=== PATIENT | female | born 1960 | race Caucasian/White ===

== ENCOUNTER 2019-03-26 16:38 | Emergency (ER) | payer OTHER ==
--- OUTSIDE RECORDS SUMMARY | 2019-03-26 16:43 | XMS REPORT | Continuity of Care Document ---
:1960 External Reference #:[id number] Author Name Eric Brown, Address [address] [place] [address] [place] [address] Care Team Providers Name Role Phone Sirena Cole M.D. Care Team Information Electronic Page Makeup System Operator Unavailable Sirena Cole M.D. Primary Care Physician Unavailable Payers Date Identification Numbers Payment Provider Subscriber Policy Number: [id number] Jarad Hearn PayID: [id number] [address] [place] [id number] Advance Directives Description No Information Available Problems Active Problems Provider Date Generalized abdominal pain Kasie Hendrix PA-C Onset: 02/15/2019 Hemorrhage of rectum and anus Kasie Hendrix PA-C Onset: 02/15/2019 Cough Kasie Hendrix PA-C Onset: 02/15/2019 Gastroesophageal reflux disease Kasie Hendrix PA-C Onset: 02/15/2019 Family History Description No Information Available Social History Type Date Description Comments Sex Unknown Tobacco Use Start: Unknown Patient has never smoked Smoking Status Reviewed: 02/15/19 Patient has never smoked Allergies, Adverse Reactions, Alerts Active Allergies Reaction Severity Comments Date Statins 02/15/2019 Medications Active Medications SIG Qnty Indications Ordering Date Provider Trazodone HCL 1 by mouth at 30tabs G47.00 Sirena Cole, 01/13/2019 50mg Tablets bedtime M.D. Meloxicam take one tab 45tabs M19.049 Sirena Cole, 01/13/2019 7.5mg Tablets twice daily as M.D. needed for pain, avoid other nsaids Diclofenac Sodium apply four 100units M19.049 Sirena Cole, 12/23/2018 1% Gel times a day as M.D. needed Tramadol HCL 1 by mouth 30tabs Kelsey Sirena, 11/18/2018 50mg Tablets every 6-8 hours M.D. as needed for pain [id number] Ethyl 1 capsules 120caps E78.5 Kelsey Sirena, 11/17/2018 Esters 1x/day M.D. 1gm Capsules Cyclobenzaprine HCL 1-2 tab once a 30tabs M62.830 Kelsey Sirena, 11/17/2018 5mg day as needed M.D. Tablets for muscle spasm Levothyroxine Sodium 1 by mouth 90tabs Kelsey Sirena, 50mcg every day M.D. Tablets Metformin HCL 1 by mouth once 90tabs Kelsey Sirena, 500mg Tablets a day M.D. Hydroxyzine HCL 1 tablet by 90tabs Kelsey Sirena, 10mg mouth daily prn M.D. Tablets D 5000 take 1 tab by Unknown 5000Unit Tablets mouth daily Citalopram Hydrobromide Daily Unknown 10mg Tablets History Medications Colyte-Flavor Packs As directed 4000ml K62.5 Kasie L. 02/15/2019 - ESTEFANIA Hendrix 02/18/2019 240gm Solution Rec Diazepam take one tablet 10tabs F40.243 Kelsey Sirena, 01/13/2019 - 5mg Tablets by mouth every M.D. 02/15/2019 8 hours as needed anxiety Amphetamine-Dextroamp 1 by mouth 30tabs R41.840 Kelsey Sirena, 01/13/2019 - hetamine every day M.D. 02/15/2019 10mg Tablets Biotin 1 by mouth Unknown - 5mg Tablets every day 02/15/2019 Immunizations Description No Information Available Vital Signs Date Vital Result Comment 02/15/2019 3:21pm Height 66 inches 5'6" Weight 156.00 lb BP Systolic 118 mmHg BP Diastolic 75 mmHg Heart Rate 68 /min BMI (Body Mass Index) 25.2 kg/m2 Results Test Date Facility Test Result H/L Range Note [place] test 02[place] [facility] [place]ULT 1, 2 finding Interface Order BELOW Laboratory test 02/23[place] [facility] [place] mg/dL High 70-100 3 finding Glucose Lab Results 11/17/2018 N2N/[facility] Import MTHFR C677T Negative Mutation MTHFR Interpretation See Comment 4 MTHFR Reviewed By See Comment 5 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 Mthac Interpretation See Comment 6 Mthac Reviewed By See Comment 7 Lab Results 11/11/2018 N2N/CCD Import TSH (Thyroid Stim 1.40 mcIU/mL 0.34-5.6 Horm) Vitamin B12 656 pg/mL 180-914 8 1 [id number] 2 SEE RESULT BELOW Name: COURT HEARN : [address]: Eric Brown DO Acct: [id number] Unit: [id number] AGE: 58 Location: [facility] Re02/23/19 SEX: F Status: DEP REF SPEC: [id number] ALEX: 02/23/19-[address] [facility] [address]: Eirc Brown DO REQ: [id number] RECD: 02/23/190475 STATUS: DANIEL BLAIR DR: Sirena Cole MD _ ORDERED: LEVEL 4 COMMENTS: [id number] FINAL DIAGNOSIS Colon, random, biopsy: -- Benign colonic mucosa with no significant pathologic abnormalities. -- No evidence of microscopic colitis. CLINICAL HISTORY Rectal bleeding PRE-OPERATIVE DIAGNOSIS Rule out microscopic colitis POST-OPERATIVE DIAGNOSIS Colonoscopy: to terminal ileum; good prep; normal; grade I internal hemorrhoid; biopsy to rule out microscopic colitis; bleeding from internal hemorrhoid GROSS DESCRIPTION The specimen is received in formalin labeled, Random Colon Biopsies, and consists of a 0.6 x 0.5 x 0.3 cm aggregate of abebe irregular soft tissue fragments which is submitted entirely in one cassette. Signed by and Reported on: Sandra Nolasco MD 02/24/19 1313 END OF REPORT DEPARTMENT OF PATHOLOGY, [address] [place] [address] Kevin Silva M.D. Director [facility] # [id number] SEE RESULT BELOW Name: NADIYACOURT : [address]: Eric Brown DO Acct: [id number] Unit: [id number] AGE: 58 Location: [facility] Re02/23/19 SEX: F Status: DEP REF SPEC: [id number] ALEX: 02/23/19-[address] [facility] [address]: Eric Brown DO REQ: [id number] RECD: 02/23/19 STATUS: DANIEL BLAIR DR: Sirena Cole MD _ ORDERED: LEVEL 4 COMMENTS: [id number] FINAL DIAGNOSIS Colon, random, biopsy: -- Benign colonic mucosa with no significant pathologic abnormalities. -- No evidence of microscopic colitis. CLINICAL HISTORY Rectal bleeding PRE-OPERATIVE DIAGNOSIS Rule out microscopic colitis POST-OPERATIVE DIAGNOSIS Colonoscopy: to terminal ileum; good prep; normal; grade I internal hemorrhoid; biopsy to rule out microscopic colitis; bleeding from internal hemorrhoid GROSS DESCRIPTION The specimen is received in formalin labeled, Random Colon Biopsies, and consists of a 0.6 x 0.5 x 0.3 cm aggregate of abebe irregular soft tissue fragments which is submitted entirely in one cassette. Signed by and Reported on: Sandra Nolasco MD 02/24/19 1313 END OF REPORT DEPARTMENT OF PATHOLOGY, [address], [place], [place] [address] Kevin Silva M.D. Director [facility] # [id number] 3 Gravity Meter Operator: [id number] This individual DOES NOT have the Methylenetetrahydrofolate reductase (MTHFR) C677T gene mutation. In the absence of the MTHFR C677T gene mutation, other causes of hyperhomocysteinemia should be considered (renal failure, zinc deficiency, leukemia, psoriasis, or antifolate drug therapy). If clinically indicated, suggest Coagulation Consultation 09130 (Thrombophilia Profile) to complete the evaluation for an inherited or acquired thrombosing disorder (i.e., thrombophilia). Consider genetic consultation and counseling of potentially affected family members regarding laboratory testing. ADDITIONAL INFORMATION This test is a direct mutation analysis using PCR amplification, signal generation and release by cleavage of sequence specific alleles ([employer], [employer], [place], [place]). This test has been modified from the merchandise processor's instructions. Its performance characteristics were determined by [facility] in a manner consistent with CLIA requirements. This test has not been cleared or approved by the U.S. Food and Drug Administration. 5 RESULT: Martin James M.D., Ph.D. 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 MTHAC S0247D carriers are not at increased risk for thrombosis in the absence of hyperhomocysteinemia. In the absence of alternative causes, heterozygous carriers of MTHAC W5860W are not at increased risk for hyperhomocysteinemia. Hyperhomocysteinemia is a relatively weak risk factor for both venous thromboembolism and arterial thrombosis. The MTHAC F2953L gene mutation test does not detect other causes of hyperhomocysteinemia due to acquired disorders (renal failure, zinc deficiency, leukemia, psoriasis, or antifolate drug therapy). If clinically indicated, suggest Coagulation Consultation 30062 (Thrombophila Profile) to complete the evaluation for an inherited or acquired thrombosing disorder (i.e., thrombophilia). Consider genetic consultation and counseling of potentially affected family members regarding laboratory testing. ADDITIONAL INFORMATION This test is a direct mutation analysis using PCR amplification, signal generation and release by cleavage of sequence specific alleles ([employer], [employer], [place], [place]). This test has been modified from the merchandise processor's instructions. Its performance characteristics were determined by [facility] in a manner consistent with CLIA requirements. This test has not been cleared or approved by the U.S. Food and Drug Administration. 7 RESULT: Martin James M.D., Ph.D. This test is a direct mutation analysis using PCR amplification, signal generation and release by cleavage of sequence specific alleles ([employer], [employer], [place], [place]). This test has been modified from the merchandise processor's instructions. Its performance characteristics were determined by [facility] in a manner consistent with CLIA requirements. This test has not been cleared or approved by the U.S. Food and Drug Administration. Test Performed by: [address] [id number] 8 Normal Range 180 to 914 Indeterminate Range 145 to 180 Deficient Range <145 Procedures Description No Information Available Encounters Type Date Location Provider Dx Diagnosis Office Visit 02/15/2019 Gastroenterology Kasie Nassar K21.9 Gastro- esophageal 3:[facility] PA-C reflux disease without esophagitis R05 Cough K62.5 Hemorrhage of anus and rectum R10.84 Generalized abdominal pain Plan of Treatment 02/15/2019 - CHUN VidalCK21.9 Gastro-esophageal reflux disease without [id number] HbhgjR76.5 Hemorrhage of anus and rectumNew Medication: Colyte-Flavor Packs 240 gm - As directedComments:RISKS AND BENEFITS OF THE PROCEDURE WERE DISCUSSED WITH PATIENT.R10.84 Generalized abdominal pain
[2019-03-26 16:50] VITALS: BP 135/65
--- NOTE | 2019-03-26 16:54 | UC ---
Skin Complaint HPI - HPI Summary HPI Summary: 58 yo female presents with tick bite. She tells me that about 3 weeks ago she was bitten by a tick on the back of her neck. Removed it and it was not engorged - unsure how long it was attached. Earlier this week she was bitten on the abdomen by another tick that she removed within a few hours. She tells me today that she has been having body aches and pain and feels itchy all over. She is requesting a test for lyme disease and a referral to dermatology as she has a history of skin "cysts" and used to live in [place] and is concerned about skin cancer. Denies fever, chills, headache, abdominal pain, rash. - History of Current Complaint Chief Complaint: UCGeneralIllness Time Seen by Provider: 03/26/19 16:42 Stated Complaint: RASH Hx Obtained From: Patient Hx Last Menstrual Period: post mennopause Onset/Duration: Sudden Onset Onset Severity: Mild Current Severity: Mild Pain Intensity: 4 Pain Scale Used: 0-10 Numeric - Allergy/Home Medications Allergies/Adverse Reactions: Allergies Allergy/AdvReac Type Severity Reaction Status Date / Time No Known Allergies Allergy Verified 10/15/16 20:08 PMH/Surg Hx/FS Hx/Imm Hx - Additional Past Medical History Additional PMH: Chronic pain Endocrine History: Diabetes, Hypothyroidism Psychological History: Anxiety - Surgical History Surgical History: Unable to Obtain/Confirm Surgery Procedure, Year, and Place: right knee replacement - Family History Known Family History: Positive: Cardiac Disease, Renal Disease - Social History Occupation: Employed Full-time Lives: With Family Alcohol Use: Occasionally Substance Use Type: None Smoking Status (MU): Never Smoked Tobacco Have You Smoked in the Last Year: No - Immunization History Hx Tetanus, Diphtheria Vaccination: No Vaccination Up to Date: No Review of Systems All Other Systems Reviewed And Are Negative: Yes Constitutional: Positive: Other - Body aches Skin: Positive: Other - Tick bite Respiratory: Positive: Negative Cardiovascular: Positive: Negative Gastrointestinal: Positive: Negative Neurovascular: Positive: Negative Neurological: Positive: Negative Psychological: Positive: Negative Physical Exam - Summary Physical Exam Summary: GENERAL: NAD. WDWN. No pain distress. SKIN: Posterior neck: No rash, FB, or tick/insect, no abscess. Abdomen: 1mm scab from previous tick bite. No streaking, bleeding, or drainage. NECK: Supple. Nontender. No lymphadenopathy. CHEST: No accessory muscle use. Breathing comfortably and in no distress. CV: Pulses intact. Cap refill <2seconds NEURO: Alert. PSYCH: Age appropriate behavior. Triage Information Reviewed: Yes Vital Signs: Initial Vital Signs Temp 97.5 F 03/26/19 16:43 Pulse 64 03/26/19 16:43 Resp 16 03/26/19 16:43 BP 135/65 03/26/19 16:43 Pulse Ox 96 03/26/19 16:43 Vital Signs Reviewed: Yes Course/Dx - Course Course Of Treatment: I have a low suspicion for lyme disease at this time. Pt admits she is an "itchy " person and I believe there is some degree of underlying anxiety contributing to her symptoms. Will draw for lyme test at pt's request and refer her to dermatology for routine skin checks. - Diagnoses Provider Diagnosis: Tick bite Discharge - Sign-Out/Discharge Documenting (check all that apply): Patient Departure All imaging exams completed and their final reports reviewed: No Studies - Discharge Plan Condition: Stable Disposition: HOME Patient Education Materials: Lyme Disease (ED), Tick Bite (ED) Referrals: Sirena Cole MD [Primary Care Provider] - Francie Stern MD [Medical Doctor] - As Soon As Possible Additional Instructions: If you develop a fever, shortness of breath, chest pain, new or worsening symptoms - please call your PCP or go to the ED immediately. 1) Please call Dermatology at the number below to schedule an appointment for skin checks - Billing Disposition and Condition Condition: STABLE Disposition: Home
--- NOTE | 2019-03-28 17:10 | UC ---
- Progress Note Progress Note: lab results reviewed: Lyme screen(IgG, IgM):negative no change in plan Course/Dx - Diagnoses Provider Diagnoses: Tick bite Discharge - Sign-Out/Discharge Documenting (check all that apply): Post-Discharge Follow Up All imaging exams completed and their final reports reviewed: No Studies - Discharge Plan Condition: Stable Disposition: HOME Patient Education Materials: Lyme Disease (ED), Tick Bite (ED) Referrals: Francie Stern MD [Medical Doctor] - As Soon As Possible Sirena Cole MD [Primary Care Provider] - Additional Instructions: If you develop a fever, shortness of breath, chest pain, new or worsening symptoms - please call your PCP or go to the ED immediately. 1) Please call Dermatology at the number below to schedule an appointment for skin checks - Billing Disposition and Condition Condition: STABLE Disposition: Home
== END 2019-03-26 17:17 | disposition home or self-care (01) ==
LOC: UCEAST 16:38
DX: S10.96XA Insect bite of unspecified part of neck, initial encounter (principal); W57.XXXA Bitten or stung by nonvenomous insect and other nonvenomous arthropods, initial encounter; Y92.9 Unspecified place or not applicable; M79.10 Myalgia, unspecified site; G89.29 Other chronic pain; E11.9 Type 2 diabetes mellitus without complications; Z96.651 Presence of right artificial knee joint
CPT/HCPCS: 36415; 86618; 99211; G0463

== ENCOUNTER 2019-12-22 20:06 | Emergency (ER) | payer OTHER ==
--- OUTSIDE RECORDS SUMMARY | 2019-12-22 20:12 | XMS REPORT | Continuity of Care Document ---
:1960 External Reference #:[id number] Author Name Haily Ma MD (transmitted by agent of provider Lisa Villalpando-Jamarcus) Address [address] [place] [id number] Care Team Providers Name Role Phone Sirena Cole M.D. 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 positive Sirena Cole MD Onset: 07/10/2018 Social History Type Date Description Comments Sex Unknown Tobacco Use Start: Unknown Never Smoked Cigarettes Smoking Status Reviewed: 12/08/19 Never Smoked Cigarettes ETOH Use Occasionally consumes alcohol Tobacco Use Start: Unknown Patient has never smoked Recreational Drug Use Never Used Drugs Exercise Type/Frequency Exercises regularly Allergies, Adverse Reactions, Alerts Active Allergies Reaction Severity Comments Date Statins has tried multiple statins 10/14/2018 Latex itchy 06/30/2019 Fenofibrate severe leg pain 07/27/2019 Ezetimibe severe leg pain 07/27/2019 Medications Active Medications SIG Qnty Indications Ordering Date Provider Ciprofloxacin HCL 1 by mouth twice 28tabs R30.0 Heena Sesay, 11/30/2019 a day SUPERVISOR CD AREA-Cde 500mg Tablets Testosterone 5MG Apply to thigh 30daysupply Paradise Colby, 10/29/2019 Cream daily N.P. Estradiol Insert 1 Tablet 24tabs N95.1 Heena Sesay, 08/13/2019 10mcg Vaginally Once SUPERVISOR CD AREA-Cde Tablets Daily For 2 Weeks Then Use Twice A Week Diazepam take one tablet 10tabs F40.243 Sirena Cole MD 07/14/2019 5mg Tablets by mouth 2 hrs before flying as needed Freestyle Lite Test test blood sugar 100units Sirena Cole MD 06/25/2019 3 times daily Strips and as needed Freestyle Lancets 2 times daily 100units Sirena Cole MD 06/25/2019 and as needed Misc Tramadol HCL 1 by mouth every 60tabs Sirena Cole MD 11/18/2018 50mg 6-8 hours as Tablets needed for pain Bycyj-6-Ybne Ethyl 1 capsules 120caps E78.5 Sirena Cole MD 11/17/2018 Esters 1x/day 1gm Capsules Glutathione Unknown 50mg Tablets Acyclovir 1 by mouth four Unknown 800mg times a day Tablets Vitamin D-3 take 1 tab by Unknown 5000Unit mouth daily Tablets Hydroxyzine HCL 1 tablet by 90tabs Sirena Cole MD 10mg mouth daily prn Tablets Metformin HCL Take 1 Tablet By 90tabs Karuna Moreno MD 500mg Mouth Every Day Tablets Levothyroxine Sodium 1 by mouth every 90tabs Emmy Dickson, day M.DAngelina, FACP 50mcg Tablets History Medications Phenazopyridine HCL take one tab by 30tabs Paradise Colby, 11/26/2019 - 100mg mouth every 8 N.P. 12/08/2019 Tablets hours as needed for pain with urination Sulfamethoxazole/Trimet take one tab by 10tabs Paradise Colby, 11/15/2019 - hoprim DS mouth twice a day N.P. 11/30/2019 800-160mg Tablets x 3 days Premarin 0.5g per vagina 30gm N95.2 Sirena Cole, 07/14/2019 - 0.625mg/GM Cream at bedtime 10/20/2019 2x/week Immunizations Description No Information Available Vital Signs Date Vital Result Comment 12/08/2019 4:02pm Height 66 inches 5'6" Weight 155.00 lb Heart Rate 75 /min BP Systolic 99 mmHg BP Diastolic 66 mmHg O2 % BldC Oximetry 96 % BMI (Body Mass Index) 25.0 kg/m2 11/30/2019 12:12pm Height 66 inches 5'6" Weight 155.25 lb Heart Rate 59 /min BP Systolic 112 mmHg BP Diastolic 62 mmHg Body Temperature 97.3 F O2 % BldC Oximetry 96 % BMI (Body Mass Index) 25.1 kg/m2 Results Test Acquired Date Facility Test Result H/L Range Note Urinalysis 11/30/2019 [facility] Urine Appearance Cloudy [address] [place] [address] [phone] Urine Specific Gerry 1.023 Normal 1.010-1.030 Urine pH 5.0 Normal 5-9 Urine Urobilinogen Positive Abnormal Negative Urine Ketones Negative Negative Urine Protein Negative Negative Urine Leukocytes Negative Negative Urine Blood Negative Negative Urine Nitrite Positive Abnormal Negative Urine Bilirubin Negative Negative Urine Glucose Negative Negative Urine White Blood Cell 2+(11-20/hpf) Abnormal Absent Urine Red Blood Cell Absent Absent Urine Bacteria 1+ Abnormal Absent Urine Squamous Epithelial Cell Present Abnormal Absent Urine Calcium Oxalate Cryst Present Abnormal Absent Urine Color Red Abnormal Urine Culture And 11/30/2019 [facility] Urine Culture SEE RESULT [address] [place] [address] [phone] Urinalysis Profile 11/15/2019 [facility] Urine Color Mariza [address] [place] [address] [phone] Urine Appearance Turbid Urine Specific Gerry 1.017 Normal 1.010-1.030 Urine pH 7.0 Normal 5-9 Urine Urobilinogen Negative Negative Urine Ketones Negative Negative Urine Protein Negative Negative Urine Leukocytes Trace Abnormal Negative Urine Blood Negative Negative * * Abnormal Negative 3 Urine Nitrite Positive Abnormal Negative Urine Bilirubin Negative Negative Urine Glucose Negative Negative Urine White Blood Cell 1+(6-10/hpf) Abnormal Absent Urine Red Blood Cell Trace(0-2/hpf) Absent Urine Bacteria 1+ Abnormal Absent Urine Squamous Epithelial Cell Present Abnormal Absent Urine Culture And 11/15/2019 [facility] Urine Culture SEE RESULT [address] [place] [address] [phone] Laboratory test 10/27/2019 [facility] Hemoglobin A1c 6.0 % High 4.0- 5 finding (Glyco HGB) 5.6 [place] [address] [phone] TSH (Thyroid Stim Horm) 0.89 mcIU/mL Normal 0.34-5.60 Lipid Profile 10/27/2019 [facility] Triglycerides 157 mg/dL 6 (Trig/Chol/HDL) [place] [address] [phone] Cholesterol 215 mg/dL 7 HDL Cholesterol 57.2 mg/dL 8 LDL Cholesterol 126 mg/dL 9 Comp Metabolic 10/27/2019 [facility] Sodium 141 mmol/L Normal 135-[address] [place] [address] [phone] Potassium 4.2 mmol/L Normal 3.5-5.0 Chloride 106 mmol/L Normal 101-111 Co2 Carbon Dioxide 26 mmol/L Normal 22-32 Anion Gap 9 mmol/L Normal 2-11 Glucose 113 mg/dL High 70-100 Blood Urea Nitrogen 16 mg/dL Normal 6-24 Creatinine 0.84 mg/dL Normal 0.51-0.95 BUN/Creatinine Ratio 19.0 Normal 8-20 Calcium 9.6 mg/dL Normal 8.6-10.3 Total Protein 6.7 g/dL Normal 6.4-8.9 Albumin 4.2 g/dL Normal 3.2-5.2 Globulin 2.5 g/dL Normal 2-4 Albumin/Globulin Ratio 1.7 Normal 1-3 Total Bilirubin 0.40 mg/dL Normal 0.2-1.0 Alkaline Phosphatase 65 U/L Normal 34-104 Alt 22 U/L Normal 7-52 Ast 16 U/L Normal 13-39 Egfr Non- 69.4 >60 Egfr 84.0 >60 10 Laboratory test 10/27/2019 [facility] Vitamin D 31.6 Normal 20 -[address] Total 25(Oh) ng/[place] [address] [phone] Pthi 10/27/2019 [facility] Calcium (PTH 9.5 mg/dL Normal 8.6- 10.3 [place]IVE [place]act) [place] [address] [phone] PTH Intact 32.0 pg/mL Normal 12-88 Laboratory test 08/13/2019 [facility] Cytology SEE RESULT [address] [place] [address] [phone] Ua Routine 07/27/2019 Analysis Director In House Ua Specific 1.010 Gerry Ua PH 5 Ua Color straw Ua Appera clear Ua WBC trace Ua Protein neg. Ua Glucose normal Ua Ketones neg. Ua Bilirubin neg. Ua Urobilinogen normal Ua Nitrite neg. Ua Occult Blood neg. Urine Culture And 07/27/2019 [facility] Urine Culture SEE RESULT [address] [place] [address] [phone] Laboratory test 07/14/2019 [facility] Cytology <pending> finding [address] [place] [address] [phone] Laboratory test 06/30/2019 [facility] Surgical SEE RESULT [address] [place] [address] [phone] Laboratory test 06/17/2019 [facility] Creatine 68 U/L Normal 10-[address] Kinase(CK) 23 [place] [address] [phone] 1 [id number] 2 SEE RESULT BELOW Name: COURT HEARN : [address]: Heena Sesay NP [facility] Acct: [id number] Unit: [id number] AGE: 58 Location: [facility] Re11/30/19 SEX: F Status: REG REF SPEC: [id number] ALEX: 11/30/19-[address]: Heena ONOFRE REQ: [id number] RECD: 11/30/19-642 STATUS: COMP _ SOURCE: URINE SPDESC: ORDERED: Urine Culture COMMENTS: [id number] Urine Source: Random Procedure Result Reported Site Urine Culture Final 12/02/19- 941 ML No growth of clinically significant organisms * ML - Main Lab . END OF REPORT DEPARTMENT OF PATHOLOGY, [address] [place] [address] Kevin Silva M.D. Director [facility] # [id number] 3 *Ascorbic acid is present which may interfere with detection of blood. 4 SEE RESULT BELOW Name: COURT HEARN : [address]: Paradise Colby NP Acct: [id number] Unit: [id number] AGE: 58 Location: [facility] Re11/15/19 SEX: F Status: REG REF SPEC: [id number] ALEX: 11/15/19-[address]: Paradise Colby NP REQ: [id number] RECD: 11/15/19 STATUS: COMP _ SOURCE: URINE SPDESC: ORDERED: Urine Culture COMMENTS: [id number] Urine Source: Random Procedure Result Reported Site Urine Culture Final 11/18/19- 908 ML Organism 1 ESCHERICHIA COLI [place] Count >100,000 (Many) CFU/ML 1. ESCHERICHIA COLI [facility].I[facility]C. RX --------- ------ Ampicillin <=2 S Cefazolin <=4 S Cefepime <=1 S Ceftriaxone <=1 S Ciprofloxacin <=0.25 S Gentamicin <=1 S Levofloxacin <=0.12 S Meropenem <=0.25 S Nitrofurantoin <=16 S Tetracycline <=1 S Pipercillin/Tazobactam <=4 S Trimethoprim/Sulfamethoxazole <=20 S Amoxicillin/Clavulanic Acid <=2 S Aztreonam <=1 S Contact the Microbiology Department for any additional antibiotic reporting. * ML - Main Lab . END OF REPORT DEPARTMENT OF PATHOLOGY, [address] [place] [address] Kevin Silva M.D. Director [facility] # [id number] 5 Therapeutic target for the treatment of diabetes mellitus patients is <7% HBA1C, and in selective patients <6.0%. Please refer to [place] [employer] diabetic care guidelines for further information. 6 Desirable: <150 Borderline High: 150-199 High: 200-499 Very High: >500 7 Desirable: <200 Borderline High: 200-239 High: >239 8 Low: <40 Desirable: 40-60 High: >60 9 Desirable: <100 Near Optimal: 100-129 Borderline High: 130-159 High: 160-189 Very High: >189 10 Because ethnic data is not always readily available, this report includes an eGFR for both -Americans and non- Americans. The National Kidney Disease Education Program (NKDEP) does not endorse the use of the MDRD equation for patients that are not between the ages of 18 and 70, are , have extremes of body size, muscle mass, or nutritional status, or are non- or non-. According to the National Kidney Foundation, irrespective of diagnosis, the stage of the disease is based on the level of kidney function: Stage Description GFR(mL/min/1.73 m(2)) 1 Kidney damage with normal or decreased GFR 90 2 Kidney damage with mild decrease in GFR 60-89 3 Moderate decrease in GFR 30-59 4 Severe decrease in GFR 15-29 5 Kidney failure <15 (or dialysis) 11 Total 25-Hydroxyvitamin D2 and D3 (25-OH-VitD) <10 ng/mL (severe deficiency) 10-19 ng/mL (mild to moderate deficiency) 20-50 ng/mL (optimum levels) 51-80 ng/mL (increased risk of hypercalciuria) >80 ng/mL (toxicity possible) 12 SEE RESULT BELOW Name: COURT HEARN : [address]: Heena Sesay NP [facility] Acct: [id number] Unit: [id number] AGE: 58 Location: [facility] Re08/13/19 SEX: F Status: REG REF SPEC: [id number] ALEX: 08/13/[address]: Heena Sesay NP [facility] REQ: [id number] RECD: 08/14/19 STATUS: SOUT _ ORDERED: TP IMAGE ANALYS, HPV/Thin Prep, HPV 16/18 GENE COMMENTS: [id number] FINAL DIAGNOSIS Negative for Intraepithelial lesion or Malignancy HPV RESULTS Date Time Test Result Flag (u) Normal Range 08/13/19 1148 HPV KEVIN RFLX GE Negative Negative The high-risk HPV types detected by the assay include: 16, 18, 31, 33, 35, 39, 45, 51, 52, 56, 58, 59, 66, and 68. SPECIMEN(S) RECEIVED A. Ectocervical/Endocervical CYTOLOGY ADEQUACY Specimen Adequacy: Satisfactory of evaluation Transformation zone component identified CYTOLOGY PATIENT INFORMATION Patient Information: HPV: High risk HPV RNA testing regardless of pap results. HPV 16/18 Genotype Reflex Actual Specimen Date: 08/13/19 ?: N Post Menopausal?: N Hysterectomy?: N Previous Abnormal Pap Smears?:N CONTINUED ON NEXT PAGE DEPARTMENT OF PATHOLOGY, [facility] [employer] [place] [address] Kevin Silva M.D. Director [facility] # [id number] Signed by and Reported on: PATRICE Jones(ASCP) 1621 This Pap test was evaluated with the assistance of the [employer] Test Imaging System. Due to cytologic findings at the technology consultant microscope, comprehensive manual rescreening by a Water Pollution Specialist may be required. The Pap Smear is a screening test designed to aid in the detection of premalignant and malignant conditions of the uterine cervix. It is not a diagnostic procedure and should not be used as the sole means of detecting cervical cancer. Both false- positive and false- negative reports do occur. Depending on your risk status, a Pap smear should be obtained and evaluated every 1-3 years. END OF REPORT DEPARTMENT OF PATHOLOGY, [facility] [employer] [place], [place] [address] Kevin Silva M.D. Director [facility] # [id number] 13 SEE RESULT BELOW Name: COURT HEARN : [address]: Sirena Cole MD Acct: [id number] Unit: [id number] AGE: 58 Location: [facility] Re07/27/19 SEX: F Status: REG REF SPEC: [id number] ALEX: 07/27/19-[address]: Sirena Cole MD REQ: [id number] RECD: 07/27/19 STATUS: COMP _ SOURCE: URINE SPDESC: ORDERED: Urine Culture COMMENTS: [id number] Urine Source: Random Procedure Result Reported Site Urine Culture Final 07/28/19- 1241 ML No growth of clinically significant organisms * ML - Main Lab . END OF REPORT DEPARTMENT OF PATHOLOGY, [address] [place] [address] Kevin Silva M.D. Director [facility] # [id number] 14 SEE RESULT BELOW Name: COURT HEARN : [address]: Shaylee Aleman MD Acct: [id number] Unit: [id number] AGE: 58 Location: [facility] Re06/30/19 SEX: F Status: REG REF SPEC: [id number] ALEX: 06/30/19-[address]: Shaylee Aleman MD REQ: [id number] RECD: 06/30/19 STATUS: DANIEL BLAIR DR: Sirena Cole MD _ ORDERED: LEVEL 3, LEVEL 4 COMMENTS: [id number] FINAL DIAGNOSIS 1. Right shoulder, excision: -- Lipoma. 2. Right inner thigh, excision: -- Lipoma. CLINICAL HISTORY No history given GROSS DESCRIPTION 1. The specimen is received in formalin labeled, Right Shoulder Mass, and consists of a 1.9 by up to 1.5 x 0.8 cm yellow irregular predominantly encapsulated adipose tissue fragment. The cut surface is glistening abebe-yellow and lobulated. The specimen is inked, serially sectioned and title insurance sales representative sections are submitted in one cassette. 2. The specimen is received in formalin labeled, Right Inner Thigh Mass, and consists of a 0.9 x 0.7 up to 0.5 cm abebe brown to yellow ovoid cauterized soft tissue fragment. The cut surface is yellow-pink. The specimen is inked, trisected and submitted entirely in one cassette. Signed by and Reported on: Sandra Nolasco MD 07/01/19 1256 END OF REPORT DEPARTMENT OF PATHOLOGY, [address] [place] [address] Kevin Silva M.D. Director [facility] # [id number] Procedures Date Code Description Status 08/30/2019 [id number] Mammogram Completed 08/04/2019 67773 ECHO Transthoracic, Real-Time 2D With Doppler And Completed Color Flow 08/04/2019 63700 ECHO Transthoracic, Real-Time 2D With Doppler And Completed Color Flow 07/27/2019 76722 EKG Tracing & Interpretation Completed 07/23/2019 [id number] Mammogram Completed 06/30/2019 56409 Excise Benign lesion 1.1-2CM Trunk/Arm/Leg Completed 06/30/2019 81123 Excision, Benign Trunk,Arms,Legs 0.6 CM To 1.0 CM Completed 02/23/2019 [id number] Colonoscopy Completed 12/14/2018 [id number] Diabetic Retinal Eye Exam Completed 07/10/2018 82434500 Mammogram Completed 11/10/2017 77386275 Colonoscopy Completed 07/09/2017 33536694 Mammogram Completed Medical Devices Description No Information Available Encounters Type Date Location Provider Dx Diagnosis Office Visit 11/15/2019 2:40p [facility] Paradise Colby, N.P. R30.0 Dysuria of [facility] N95.2 Postmenopausal atrophic vaginitis R68.82 Decreased libido Office Visit 10/27/2019 4:00p [facility] Paradise Colby R68.82 Decreased libido [facility] N.P. 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, Ccmob unspecified E78.5 Hyperlipidemia, unspecified E11.9 Type 2 diabetes mellitus without complications E03.9 Hypothyroidism, unspecified R22.31 Localized swelling, mass and lump, right upper limb Office Visit 08/13/2019 11:00a [facility] Heena Sesay, Z12.4 Encounter for [facility] SUPERVISOR CD AREA-Cde screening for malignant neoplasm of cervix N95.1 Menopausal and female climacteric states N95.2 Postmenopausal atrophic vaginitis Office Visit 08/03/2019 10:30a Surgical Shaylee Aleman D17.9 Benign lipomatous [facility] neoplasm, unspecified Office Visit 07/27/2019 9:40a [facility] Denys S. I70.[address] 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 swelling, mass and lump, unspecified D17.9 Benign lipomatous neoplasm, unspecified Assessments Date Code Description Provider 12/08/2019 M85.80 Other specified disorders of bone density Haily Ma MD and structure, unspecified site 11/30/2019 R30.0 Dysuria Giuliana Quarles 11/15/2019 R30.0 Dysuria Paradise Colby, N.P. 11/15/2019 N95.2 Postmenopausal atrophic vaginitis Paradise Colby, N.P. 11/15/2019 R68.82 Decreased libido Paradise Colby, N.P. 10/27/2019 R68.82 Decreased libido Paradise Colby, N.P. 10/27/2019 M85.80 Other specified disorders of bone density Haily Ma MD and structure, unspecified site 10/27/2019 N94.11 Superficial (introital) dyspareunia Paradise Colby, N.P. 10/20/2019 D17.9 Benign lipomatous neoplasm, unspecified Rosalee Davison MD 10/20/2019 E78.5 Hyperlipidemia, unspecified Rosalee Davison MD 10/20/2019 E11.9 Type 2 diabetes mellitus without Rosalee Davison MD complications 10/20/2019 E03.9 Hypothyroidism, unspecified Rosalee Davison MD 10/20/2019 R22.31 Localized swelling, mass and lump, right Rosalee Davison MD upper limb 08/13/2019 Z12.4 Encounter for screening for malignant DAYANNA Quarles neoplasm of cervix 08/13/2019 N95.1 Menopausal and female climacteric states YUE Quarles 08/13/2019 N95.2 Postmenopausal atrophic vaginitis Heena Zamorakins, [facility] 08/04/2019 R06.02 Shortness of breath Denys Leblanc, DO [facility] 08/04/2019 R06.02 Shortness of breath Traveling [facility]CHO 1 08/03/2019 D17.9 Benign lipomatous neoplasm, unspecified Shaylee Aleman MD 07/27/[address] [facility] arteries of Denys Leblanc, DO [facility] extremities with rest pain, bilateral legs 07/27/2019 R06.02 Shortness of breath Denys Leblanc, DO [facility] 07/27/2019 R07.9 Chest pain, unspecified Denys Leblanc, [facility] 07/27/2019 R94.31 Abnormal electrocardiogram [ECG] [EKG] Denys Leblanc, [facility] 07/27/2019 R73.01 Impaired fasting glucose Denys Leblanc [facility] 07/27/2019 E78.5 Hyperlipidemia, unspecified Denys Leblanc, [facility] 07/27/2019 R10.9 Unspecified abdominal pain Nurse Visit A 07/14/2019 Z01.419 Encounter for gynecological examination Sirena Cole MD (general) (routine) without abnormal findings 07/14/2019 N95.2 Postmenopausal atrophic vaginitis Sirena Cole MD 07/14/2019 N39.41 Urge incontinence Sirena Cole MD 07/14/2019 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 unspecified 06/22/2019 D17.9 Benign lipomatous neoplasm, unspecified Marleny Carney M.D. Plan of Treatment Future Appointment(s):05/05/2020 3:15 pm - Francie Stern MD at [facility] Catdfsbjiyn17/29/2020 - Haily Ma, MDM85.80 Other specified disorders of bone density and structure, unspecified siteNew Therapy:Physical TherapyComments :The patient comes in today for follow-up of her bone density. Her DEXA scan shows osteopenia in bother of her hips, with a low of -2.0 in her right hip. I recommended that she take calcium supplementation of 1200 mg per day in divided doses. Calcium citrate typically causes less constipation andgas than the calcium carbonate. She should continue with vitamin D at her current dosage since hervitamin D is currently in the normal range. She should focus on weight bearing and resistive exercises, and I will give her a prescription to work with the physical therapist on establishing a home exercise program. She does not need prescription medication at this time. A repeat DEXA should be performed in 2 years and she is to follow-up with me after this has been performed.M85.80 Other specified disorders of bone density and structure, unspecified siteNew Therapy:Physical TherapyComments:The patient comes in today for follow-up of her bone density. Her DEXA scan shows osteopenia in bother of her hips, with a low of -2.0 in her right hip. I recommended that she take calcium supplementation of 1200 mg per day in divided doses. Calcium citrate typically causes less constipation andgas than the calcium carbonate. She should continue with vitamin D at her current dosage since hervitamin D is currently in the normal range. She should focus on weight bearing and resistive exercises, and I will give her a prescription to work with the physical therapist on establishing a home exercise program. She does not need prescription medication at this time. A repeat DEXA should be performed in 2 years and she is to follow-up with me after this has been performed. Functional Status Description No Information Available Mental Status Description No Information Available Referrals Refer to Reason for Referral Status Appt Date Shaylee Aleman MD [facility] [address] [facility] [address] [place], [place] [address] [phone] Gerry Martinez MD Sent 06/30/[address] [place] [address] [phone] Gerry Martinez MD Sent 06/30/2019 [address] [place] [address] [place] [address] [phone]
[2019-12-22 20:38] VITALS: BP 140/78
[2019-12-22] MEDS ORDERED: Albuterol/Ipratropium NEB.SOL* Albuterol 2.5 MG/Ipratropium 0.5 MG 3 ML INH ONE (21:00)
--- NOTE | 2019-12-22 21:00 | UC ---
Respiratory Complaint HPI - HPI Summary HPI Summary: 59-year-old female who states that she has had a cough since . She denies any fever - History of Current Complaint Chief Complaint: UCRespiratory Stated Complaint: COUGH Time Seen by Provider: 12/22/19 20:39 Hx Obtained From: Patient Hx Last Menstrual Period: post mennopause ?: No Onset/Duration: Gradual Onset Timing: Intermittent Episodes Severity Initially: Mild Severity Currently: Mild Pain Intensity: 0 Character: Cough: Nonproductive - Nonproductive harsh cough. Patient has an inhaler at home but she lost it. Associated Signs And Symptoms: Positive: URI, Nasal Congestion - Allergies/Home Medications Allergies/Adverse Reactions: Allergies Allergy/AdvReac Type Severity Reaction Status Date / Time ciprofloxacin [From Cipro] Allergy Nausea And Verified 12/22/19 20:34 Vomiting nightshades AdvReac "makes my Uncoded 11/20/19 17:29 arthritis worse" statins AdvReac muscle pain Uncoded 11/20/19 17:29 PMH/Surg Hx/FS Hx/Imm Hx Previously Healthy: Yes Respiratory History: Asthma - Surgical History Surgical History: Yes Surgery Procedure, Year, and Place: right knee replacement, RT FINGER FUSED, DEVIATED SEPTUM REPAIR. LEFT KNEE ARTHROSCOPY. - Family History Known Family History: Positive: Cardiac Disease, Renal Disease - Social History Occupation: Employed Part-time Lives: With Family Alcohol Use: None Substance Use Type: None Smoking Status (MU): Never Smoked Tobacco Have You Smoked in the Last Year: No - Immunization History Hx Tetanus, Diphtheria Vaccination: No Vaccination Up to Date: No Review of Systems All Other Systems Reviewed And Are Negative: Yes Respiratory: Positive: Cough - Nonproductive harsh cough. Is Patient Immunocompromised?: No Physical Exam Triage Information Reviewed: Yes Appearance: Well-Appearing, No Pain Distress, Well-Nourished Vital Signs: Initial Vital Signs Temp 98.8 F 12/22/19 20:36 Pulse 70 12/22/19 20:36 Resp 18 12/22/19 20:36 BP 140/78 12/22/19 20:36 Pulse Ox 97 12/22/19 20:36 Vital Signs Reviewed: No Eyes: Positive: Conjunctiva Clear ENT: Positive: Pharynx normal, TMs normal, Uvula midline Neck: Positive: Supple, Nontender, No Lymphadenopathy Respiratory: Positive: Lungs clear, Normal breath sounds, No respiratory distress, No accessory muscle use Cardiovascular: Positive: RRR, No Murmur, Pulses Normal, Brisk Capillary Refill Musculoskeletal Exam: Normal Neurological Exam: Normal Psychological Exam: Normal Skin Exam: Normal Respiratory Course/Dx - Course Course Of Treatment: The patient was unable to tolerate a DuoNeb treatment because of frequent coughing. She has a very harsh cough. She has used an inhaler at home before so I gave her an albuterol inhaler tonight as well as prednisone 40 mg here and to continue prednisone taper with food. Definite follow-up with her primary care provider if no improvement by Friday. - Differential Dx/Diagnosis Provider Diagnosis: Bronchitis Discharge ED - Sign-Out/Discharge Documenting (check all that apply): Patient Departure All imaging exams completed and their final reports reviewed: No Studies - Discharge Plan Condition: Good Disposition: HOME Prescriptions: predniSONE 10 mg TAB [Deltasone 10 MG TAB*] 10 mg PO DAILY 11 Days #26 tab Patient Education Materials: Acute Bronchitis (ED) Referrals: Rosalee Davison MD [Primary Care Provider] - Additional Instructions: Use your albuterol inhaler 2 puffs every 4-6 hours as needed for wheezing or tight cough. Take the prednisone with food. Definite follow-up with your primary care provider if no improvement by Friday. - Billing Disposition and Condition Condition: GOOD Disposition: Home
[2019-12-22 21:04] LABS: Influenza A Molecular Negative (Negative); Influenza B Molecular Negative (Negative)
[2019-12-22] MEDS ORDERED: Albuterol HFA INHALER* 8 gm MDI INH ONE (21:20)
== END 2019-12-22 21:30 | disposition home or self-care (01) ==
LOC: UCEAST 20:06
DX: J45.909 Unspecified asthma, uncomplicated (principal); Z88.1 Allergy status to other antibiotic agents; Z91.09 Other allergy status, other than to drugs and biological substances; Z88.8 Allergy status to other drugs, medicaments and biological substances
CPT/HCPCS: 99213; A9270-GY; G0463; J7512

== ENCOUNTER 2019-12-25 13:22 | Emergency (ER) | payer OTHER ==
[2019-12-25 13:34] VITALS: BP 124/72
--- NOTE | 2019-12-25 13:57 | UC ---
Throat Pain/Nasal Kings HPI - HPI Summary HPI Summary: 59 yo returns to urgent care today after a visit on 12/23; concerned that she has sinus infection. She has had respiratoy illness and cough for weeks, and cough has improved since she began use of prednisone and albuterol. She is concerned about increasing facial pain and purulent nasal discharge, with a hx of recurrent sinus infections in the past. - History of Current Complaint Chief Complaint: UCRespiratory Stated Complaint: SINUS ISSUE Time Seen by Provider: 12/25/19 13:41 Hx Obtained From: Patient Hx Last Menstrual Period: post mennopause Onset/Duration: Gradual Onset, Lasting Weeks Pain Intensity: 4 Cough: Nonproductive Associated Signs & Symptoms: Positive: Hoarseness, Sinus Discomfort - Allergies/Home Medications Allergies/Adverse Reactions: Allergies Allergy/AdvReac Type Severity Reaction Status Date / Time ciprofloxacin [From Cipro] Allergy Nausea And Verified 12/25/19 13:35 Vomiting nightshades AdvReac "makes my Uncoded 12/25/19 13:35 arthritis worse" statins AdvReac muscle pain Uncoded 12/25/19 13:35 PMH/Surg Hx/FS Hx/Imm Hx Previously Healthy: Yes Endocrine History: Hypothyroidism - Surgical History Surgical History: Yes Surgery Procedure, Year, and Place: right knee replacement, RT FINGER FUSED, DEVIATED SEPTUM REPAIR. LEFT KNEE ARTHROSCOPY. - Family History Known Family History: Positive: Cardiac Disease, Renal Disease - Social History Occupation: Employed Part-time Lives: With Family Alcohol Use: None Substance Use Type: None Smoking Status (MU): Never Smoked Tobacco Have You Smoked in the Last Year: No - Immunization History Hx Tetanus, Diphtheria Vaccination: No Vaccination Up to Date: No Review of Systems All Other Systems Reviewed And Are Negative: Yes Constitutional: Positive: Fatigue Skin: Positive: Negative Eyes: Positive: Negative ENT: Positive: Sore Throat, Ear Ache, Sinus Congestion, Sinus Pain/Tenderness Respiratory: Positive: Cough - improved Cardiovascular: Positive: Negative Gastrointestinal: Positive: Negative Genitourinary: Positive: Negative Motor: Positive: Negative Neurovascular: Positive: Negative Musculoskeletal: Positive: Negative Neurological/Mental Status: Positive: Headache Psychological: Positive: Negative Is Patient Immunocompromised?: No Physical Exam Triage Information Reviewed: Yes Appearance: Ill-Appearing - looks fatigued and mildly unwell Vital Signs: Initial Vital Signs Temp 98.8 F 12/25/19 13:30 Pulse 72 12/25/19 13:30 Resp 16 12/25/19 13:30 BP 124/72 12/25/19 13:30 Pulse Ox 97 12/25/19 13:30 Eyes: Positive: Conjunctiva Clear ENT: Positive: Pharyngeal erythema, TM dull - bilateral serous fluid, Sinus tenderness Neck: Positive: Supple, Nontender, No Lymphadenopathy Respiratory: Positive: Lungs clear, Normal breath sounds Cardiovascular Exam: Normal Musculoskeletal Exam: Normal Neurological Exam: Normal Psychological Exam: Normal Skin Exam: Normal Throat Pain/Nasal Course/Dx - Course Course Of Treatment: augmentin for treatment of sinusitis. Continue prednisone. Prone to yeast vaginitis and she has had antibiotics for UTI's as well-->will rx fluconazole. - Differential Dx/Diagnosis Differential Diagnosis/HQI/PQRI: Influenza, Sinusitis, Tonsillitis Provider Diagnosis: Sinusitis Discharge ED - Sign-Out/Discharge Documenting (check all that apply): Patient Departure All imaging exams completed and their final reports reviewed: No Studies - Discharge Plan Condition: Stable Disposition: HOME Prescriptions: Amoxicillin/Clavulanate TAB* [Augmentin TAB 875*] 875 mg PO BID #20 tab Fluconazole 150 MG (NF) [Diflucan 150 mg (NF)] 150 mg PO ONCE #1 tab Patient Education Materials: Sinusitis (ED) Referrals: Rosalee Davison MD [Primary Care Provider] - Additional Instructions: Take the full course of antibiotics for treatment of sinusitis. Complete your course of prednisone as directed (a slower taper is fine). You have a prescription fro fluconazole to use if you develop a yeast infection as a result of the antibiotics. - Billing Disposition and Condition Condition: STABLE Disposition: Home
== END 2019-12-25 14:12 | disposition home or self-care (01) ==
LOC: UCEAST 13:22
DX: J32.9 Chronic sinusitis, unspecified (principal); H92.03 Otalgia, bilateral; R53.83 Other fatigue; N39.0 Urinary tract infection, site not specified; Z88.1 Allergy status to other antibiotic agents; Z88.8 Allergy status to other drugs, medicaments and biological substances; Z91.09 Other allergy status, other than to drugs and biological substances
CPT/HCPCS: 99212; G0463